=== PATIENT | female | born 2000 | race Caucasian/White ===

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

== ENCOUNTER 2025-04-17 18:01 | Emergency (ER) | payer OTHER, SELFPAY ==
[~2025-04-17] VITALS: Ht 162.6 cm; Wt 65.7 kg
[2025-04-17] MEDS: predniSONE 20 MG TAB PO ONE (19:01)
[2025-04-17] MEDS ORDERED: EPIP0.3I2 IM (19:28)
[2025-04-17] MEDS ORDERED: PEPC1TAB5 PO (19:29)
[2025-04-17] MEDS ORDERED: PRED20TA PO (19:29)
[2025-04-17 20:00] VITALS: BP 116/67; TEMP 97.8; O2SAT 95
== END 2025-04-17 20:51 | disposition home or self-care (01) ==
LOC: M ED 18:01
DX: T78.01XA Anaphylactic reaction due to peanuts, initial encounter (principal); F90.9 Attention-deficit hyperactivity disorder, unspecified type; Z91.010 Allergy to peanuts; Z79.52 Long term (current) use of systemic steroids; Z79.899 Other long term (current) drug therapy
CPT/HCPCS: 99284; J7512

== ENCOUNTER → 2025-05-21 | Outpatient (REF) | payer OTHER ==
[~2025-05-21] MED LIST: EPIP0.3I2 IM; PEPC1TAB5 PO; PRED20TA PO
== END ==
LOC: M LAB REF 16:53
PROVIDERS: ATTEND Physician Assistant
DX: B34.9 Viral infection, unspecified (principal)